=== PATIENT | female | born 1990 ===

== ENCOUNTER 2024-06-24 09:14 | Outpatient (CLI) | payer OTHER ==
[~2024-06-24 09:14] MED LIST: CHILDREN'S ASPI81 MG PO; PRENATABS FA T1 EACH PO; PROMETRIUM200 MG PO
== END 2024-06-24 10:06 | disposition home or self-care (01) ==
LOC: NST 09:14
PROVIDERS: ATTEND Obstetrics & Gynecology Gynecology
DX: Z34.83 Encounter for supervision of other normal pregnancy, third trimester (principal)

== ENCOUNTER 2024-07-08 10:17 | Outpatient (CLI) | payer OTHER | END 2024-07-08 11:25 | disposition home or self-care (01) | LOC: NST 10:17 | PROVIDERS: ATTEND Obstetrics & Gynecology | DX: Z34.80 Encounter for supervision of other normal pregnancy, unspecified trimester (principal) ==

== ENCOUNTER 2024-07-19 10:42 | Outpatient (CLI) | payer OTHER | END 2024-07-19 12:44 | disposition home or self-care (01) | LOC: NST 10:42 | PROVIDERS: ATTEND Obstetrics & Gynecology | DX: Z34.83 Encounter for supervision of other normal pregnancy, third trimester (principal) ==

== ENCOUNTER 2024-07-20 13:45 | Inpatient (IN) | payer OTHER ==
[~2024-07-20] VITALS: Ht 147.3 cm; Wt 92.5 kg
[2024-08-03 23:27] VITALS: BP 120/74
[2024-08-04] MEDS ORDERED: RINGERS SOLUTION,LACTATED 1,000 ML IV SCH (00:30)
[2024-08-04] MEDS ORDERED: AMPICILLIN SODIUM 2,000 MG VIAL IV ONE (00:30)
[2024-08-04 01:29] LABS: MEAN CELL VOLUME 77.9 fL (80.00-100.00); MEAN CORPUSCULAR HEMOGLOBIN 25.9 pg (27.00-32.0); MEAN CORPUSCULAR HGB CONC 33.2 g/dl (32.0-36.0); PLATELET COUNT 148 K/uL (150-450); RED BLOOD COUNT 4.24 M/uL (4.00-6.00); RED CELL DISTRIBUTION WIDTH 14.3 % (11.5-14.5)
[2024-08-04 01:50] LABS: INR 0.95; PARTIAL THROMBOPLASTIN TIME 27.6 SECONDS (22.0-34.0); PROTHROMBIN TIME 10.4 SECONDS (9.0-11.5)
[2024-08-04 02:02] LABS: ALBUMIN 2.7 gm/dL (3.4-5.0); BILIRUBIN TOTAL 0.21 mg/dL (0.3-1.2); CALCIUM 8.8 mg/dL (8.5-10.1); CREATININE SERUM 0.56 mg/dL (0.55-1.02); GFR 124.67; GLOBULINA 3.2 G/DL (2.4-3.5); POTASSIUM 4.16 mEq/L (3.5-5.1); TOTAL PROTEIN 5.9 gm/dL (6.4-8.2)
[2024-08-04 03:36] VITALS: BP 127/63
[2024-08-04] MEDS ORDERED: MAGNESIUM200 MG PO (04:55)
[2024-08-04] MEDS ORDERED: VITAMIN C100 MG PO (04:55)
[2024-08-04] MEDS ORDERED: PEPCID AC20 MG PO (04:55)
[2024-08-04] MEDS ORDERED: AMPICILLIN SODIUM 1,000 MG VIAL IV SCH (05:00)
[2024-08-04 07:24] VITALS: BP 114/69
[2024-08-04] MEDS ORDERED: OXYTOCIN 20 UNITS/500ML RL PIGGYBAG IV SCH ×2 (07:30→08:15)
[2024-08-04 07:37] VITALS: BP 107/59; BP 133/69
[2024-08-04] MEDS ORDERED: MORPHINE SULFATE 4 MG/ML VIAL IV ONE ×2 (09:00→22:00)
[2024-08-04 12:16] VITALS: BP 92/52
[2024-08-04] MEDS ORDERED: MORPHINE SULFATE 4 MG/ML CARTRIDGE IV ONE (14:10)
[2024-08-04 16:38] VITALS: BP 122/64
[2024-08-04] MEDS ORDERED: CEFOXITIN SODIUM 2,000 MG VIAL IV STA (17:34)
[2024-08-04] MEDS ORDERED: CITRIC ACID/SODIUM CITRATE 30 ML BLIST.PACK PO STA (17:34)
[2024-08-04] MEDS ORDERED: OXYTOCIN 10 UNITS/ML VIAL IV ONE (19:15)
[2024-08-04] MEDS ORDERED: ERYTHROMYCIN BASE OPHT 1GM EACH TUBE OP ONE (19:15)
[2024-08-04] MEDS ORDERED: MEPERIDINE HCL 25 MG/ML AMPUL IV ONE (21:30)
[2024-08-04] MEDS ORDERED: OXYTOCIN 1,000 ML IV SCH (23:15)
[2024-08-05 02:27] LABS: HEMATOCRIT 32.6 % (36.0-45.00); HEMOGLOBIN 10.6 g/dL (12.0-15.00); MEAN CELL VOLUME 79.9 fL (80.00-100.00); MEAN CORPUSCULAR HEMOGLOBIN 25.9 pg (27.00-32.0); MEAN CORPUSCULAR HGB CONC 32.5 g/dl (32.0-36.0); PLATELET COUNT 140 K/uL (150-450); RED BLOOD COUNT 4.08 M/uL (4.00-6.00); RED CELL DISTRIBUTION WIDTH 14.5 % (11.5-14.5)
[2024-08-05] MEDS ORDERED: CEFAZOLIN SODIUM 1,000 MG VIAL IV ONE (02:30)
[2024-08-05] MEDS ORDERED: MEPERIDINE HCL/PF 50 MG/ML VIAL IM PRN (02:30)
[2024-08-05] MEDS ORDERED: PROMETHAZINE HCL 25 MG/ML AMPUL IM PRN (02:30)
[2024-08-05] MEDS ORDERED: KETOROLAC TROMETHAMINE 30 MG VIAL IM ONE (03:00)
[2024-08-05 05:06] VITALS: BP 112/67
[2024-08-05] MEDS ORDERED: KETOROLAC TROMETHAMINE 10 MG TABLET PO SCH (08:00)
[2024-08-05] MEDS ORDERED: TRAMADOL HCL 50 MG TABLET PO SCH (08:00)
[2024-08-05] MEDS ORDERED: SIMETHICONE 125 MG CAPSULE PO SCH (09:00)
[2024-08-05] MEDS ORDERED: FF) RHO(D) IMMUNE GLOBULIN (POM) IM ONE (09:15)
[2024-08-05 09:35] VITALS: BP 114/72
[2024-08-05 14:06] VITALS: BP 109/72
[2024-08-05 16:14] VITALS: BP 100/60
[2024-08-06] VITALS: BP 112/72
[2024-08-06 10:48] VITALS: BP 116/72
[2024-08-06 16:57] VITALS: BP 100/64
[2024-08-07 01:00] VITALS: BP 124/77
[2024-08-07 08:00] VITALS: BP 113/73
== END 2024-08-07 14:13 | disposition home or self-care (01) | DRG 788 ==
LOC: LDR 08-04 00:06 → O/R 08-04 19:23 → OB/GYN 08-04 21:52
PROVIDERS: Obstetrics & Gynecology; Obstetrics & Gynecology Maternal & Fetal Medicine; ADMIT Obstetrics & Gynecology; ATTEND Obstetrics & Gynecology
PROC: 4A1HXCZ Monitoring of Products of Conception, Cardiac Rate, External Approach (ICD-10-PCS; 2024-08-04)
PROC: 10D00Z1 Extraction of Products of Conception, Low, Open Approach (ICD-10-PCS; principal; 2024-08-04 18:00)
DX: O33.8 Maternal care for disproportion of other origin (principal); Z3A.37 37 weeks gestation of pregnancy; Z37.0 Single live birth; Z20.822 Contact with and (suspected) exposure to COVID-19

== ENCOUNTER 2024-07-25 10:36 | Outpatient (CLI) | payer OTHER | END 2024-07-25 11:28 | disposition home or self-care (01) | LOC: NST 10:36 | PROVIDERS: ATTEND Obstetrics & Gynecology | DX: Z34.83 Encounter for supervision of other normal pregnancy, third trimester (principal) ==

== ENCOUNTER 2024-07-29 10:19 | Outpatient (CLI) | payer OTHER | END 2024-07-29 11:14 | disposition home or self-care (01) | LOC: NST 10:19 | PROVIDERS: ATTEND Obstetrics & Gynecology | DX: Z34.83 Encounter for supervision of other normal pregnancy, third trimester (principal) ==